=== PATIENT | male | born 1980 | race Caucasian/White ===

== ENCOUNTER 2023-01-23 11:29 | Emergency (ER) | payer OTHER, SELFPAY ==
[2023-01-23 11:56] VITALS: BP 159/98; PULSE 74; RESP 18; TEMP 36.8; O2SAT 100
[2023-01-23] MEDS: TETANUS,DIPHTHERIA,AC PERTUSSIS ADULT (0.5 ML) BOOSTRIX IM (12:42)
--- NOTE | 2023-01-23 13:15 | PC.NURSE ---
Attempted to document the duplicate dose of the Boostrix vaccine as not given, MAR will not complete this action.
--- NOTE | 2023-01-23 13:24 | ED.HEATRA ---
HPI - Head Injury General Chief complaint: Head Injury Stated complaint: hit head Time Seen by Provider: 01/23/23 12:10 History of Present Illness HPI Narrative: Patient is a 42-year-old male who presents ER with laceration of the top of his head. 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 He did not lose consciousness. He has no headache or change in vision or hearing. No numbness or tingling. No neck pain. He does have a 4 cm laceration over the scalp. Unknown last tetanus shot. Related Data Allergies Allergy/AdvReac Type Severity Reaction Status Date / Time No Known Allergies Allergy Verified 01/23/23 11:30 Review of Systems Constitutional: Constitutional: Reports no additional constitutional complaints Musculoskeletal: Musculoskeletal: Reports no additional musculoskeletal complaints Integumentary/Breasts: Skin/Breast: Denies erythema and Denies rash Comments: Scalp laceration Neurologic: Reports system reviewed and no additional complaints, except as documented Exam Narrative: GENERAL: Well-appearing, well-nourished, and in no acute distress. HEAD: Normocephalic, 4 cm laceration right parietal region in the midline. EYES: PERRL and EOMI. ENT: Mucous membranes moist. EXTREMITIES: Normal range of motion. No edema. SKIN: Warm, dry, no rash. NEURO: Alert and oriented x3. PSYCH: Normal mood and affect. Course Course Emergency Course: Patient resting comfortably. Educated on staple removal. Discharge home. Vital Signs Vital signs: Vital Signs Temperature 98.2 F 01/23/23 11:56 Pulse Rate 74 01/23/23 11:56 Respiratory Rate 18 01/23/23 11:56 Blood Pressure 159/98 H 01/23/23 11:56 Pulse Oximetry 100 01/23/23 11:56 Oxygen Delivery Room Air 01/23/23 11:56 Temperature 98.2 F 01/23/23 11:56 Pulse Rate 74 01/23/23 13:35 Respiratory Rate 19 01/23/23 13:35 Blood Pressure 154/99 H 01/23/23 13:35 Pulse Oximetry 96 01/23/23 13:35 Oxygen Delivery Room Air 01/23/23 11:56 Procedures Laceration Laceration 1: Date: 01/23/23 Time: 13:05 Site: scalp Size (cm): 4 Description: linear Depth: simple, single layer Pre-repair: irrigated extensively ====== Skin Level ====== Skin layer closed with: tiarra Number of sutures: 5 ====== Subcutaneous Layer ====== ====== Muscle Layer ====== ====== Tendon Layer ====== Discharge Plan Discharge Clinical Impression: Laceration Patient Disposition: Home, Self-Care Condition: Stable Instructions: Laceration (ED), Staple Care (ED) Additional Instructions: Monitor your wound for signs of infection including thick drainage, increased redness and pain, or fever over 100.4 ?F. You will need your tiarra removed in 7 days and you may do this at home or you may return to the hospital. Your tetanus shot was updated today. Follow-up/Referrals: Tanvi Ivey SN [Primary Care Provider] - 1 Week
[2023-01-23 13:35] VITALS: BP 154/99; PULSE 74; RESP 19; O2SAT 96
== END 2023-01-23 13:36 | disposition home or self-care (01) ==
PROVIDERS: Emergency Provider Emergency Medicine
DX: S01.01XA Laceration without foreign body of scalp, initial encounter (principal); Z23 Encounter for immunization; W20.8XXA Other cause of strike by thrown, projected or falling object, initial encounter
CPT/HCPCS: 12002; 90471; 90715; 99282